=== PATIENT | female | born 1955 | race African-American/Black ===

== ENCOUNTER → 2017-06-05 | Outpatient (CLI) | payer OTHER ==
[2017-06-05 11:17] LABS: BASOPHILS % (AUTO) 0.3 % (0.0-2.0); EOSINOPHILS # (AUTO) 0.1 /CMM (0.0-0.7); EOSINOPHILS % (AUTO) 1.7 % (0.0-6.0); HEMATOCRIT 38 % (33-45); LYMPHOCYTES # (AUTO) 2.4 /CMM (0.8-4.8); LYMPHOCYTES % (AUTO) 28.9 % (20.0-44.0); MEAN CORPUSCULAR HEMOGLOBIN 31 PG (26.0-33.0); MEAN CORPUSCULAR HGB CONC 34 g/dl (31.0-36.0); MEAN CORPUSCULAR VOLUME 92 fL (82-100); MONOCYTES # (AUTO) 0.7 /CMM (0.1-1.30); MONOCYTES % (AUTO) 8.4 % (2.0-12.0); NEUTROPHILS # (AUTO) 5.1 /CMM (1.8-8.9); NEUTROPHILS % (AUTO) 60.7 % (43.0-81.0); PLATELET COUNT (AUTO) 382 /CMM (150-450); RED BLOOD CELL COUNT(AUTO) 4.17 MIL/uL (4.0-5.2); WHITE BLOOD COUNT (AUTO) 8.5 K/uL (4.3-11.0)
[2017-06-05 11:35] LABS: BILIRUBIN,TOTAL 1.1 mg/dL (0.2-1.0); CALCIUM, SERUM 9.5 mg/dL (8.5-10.1); CREATININE 0.8 mg/dL (0.6-1.3); INR 0.96 (0.87-1.13); TOTAL PROTEIN, SERUM 7.8 g/dL (6.4-8.2)
[2017-06-05 11:42] LABS: THYROID STIMULATING HORMONE 1.248 uIU/mL (0.358-3.74)
== END ==
LOC: CARD 10:07
DX: Z01.818 Encounter for other preprocedural examination (principal); I10 Essential (primary) hypertension; R60.9 Edema, unspecified; R00.2 Palpitations
CPT/HCPCS: 36415; 80053-TC; 80061-TC; 82043; 84443-TC; 85025-TC; 85730-TC; 93307-TC